=== PATIENT | female | born 1985 | race American Indian/Alaskan Native ===

== ENCOUNTER 2016-10-23 14:58 | Emergency (ER) | payer BC ==
[2016-10-23 15:10] VITALS: BP 133/87
--- NOTE | 2016-10-23 15:36 | Emergency Department Report ---
Chief Complaint: Neuro Symptoms/Deficit Stated Complaint: POSS BRANDT SYMPTOMS Time Seen by Provider: 10/23/16 15:32 - HPI History of Present Illness: 31 y/o female complain of unable to move left arm and left leg x 6 hours ago .pt state symptom has resolved now.denies any headache ,denies any chest pain .pt denies any prior symptoms. - ROS Review of Systems: per HPI - Exam Vital Signs: Vital Signs 10/23/16 15:05 Temperature 98.7 F Pulse Rate 89 Respiratory 16 Rate Blood Pressure 133/87 O2 Sat by Pulse 97 Oximetry Physical Exam: GENERAL: The patient is well-developed and well-nourished. Patient is in NAD. HENT: Normocephalic. Atraumatic. Patient has moist mucous membranes. Throat: No erythema, swelling or exudates. Ears:Tympanic membranes pearly cantu ,intact , and free of exudate and erythema . EYES: Extraocular motions are intact, PERRL NECK: Supple. No meningitic signs are noted. There is no adenopathy noted. CHEST/LUNGS: Clear to auscultation bilaterally. No wheezing, rales or rhonchi noted. There is no respiratory distress noted. HEART/CARDIOVASCULAR: Regular rate and rhythm. Normal S1 S2. No murmurs, rubs , clicks, or gallops. ABDOMEN: Abdomen is soft, nontender.. Bowel sounds normoactive. There is no abdominal distention. Negative rebound tenderness. : Deferred. SKIN: There is no rash. There is no edema. There is no diaphoresis.Normal skin turgor NEURO: The patient is A&Ox3. The patient has no focal neurologic deficits. MUSCULOSKELETAL: There is no tenderness or deformity. There is no limitation range of motion. posture erect.Spine aligned,no deformities. PSYCH: Pt has appropriate mood and affect. MSE screening note: Focused history and physical exam performed. Due to findings the following was ordered: ED Disposition for MSE Condition: Stable
[2016-10-23 16:10] LABS: Basophils % (Auto) 0.6 % (0.0-1.8); Eosinophils % (Auto) 1.7 % (0.0-4.3); Hematocrit 32.9 % (30.3-42.9); Hemoglobin 10.2 gm/dl (10.1-14.3); Mean Corpuscular HGB Conc 31 % (30-34); Mean Corpuscular Volume 79 fl (79-97); Platelet Count 361 K/mm3 (140-440); Red Blood Count 4.18 M/mm3 (3.65-5.03); Red Cell Distribution Width 13.9 % (13.2-15.2)
[2016-10-23 16:11] LABS: Mean Corpuscular Hemoglobin 24 pg (28-32)
[2016-10-23 16:20] LABS: INR 0.9 (0.87-1.13)
[2016-10-23 16:21] LABS: Partial Thromboplastin Time 31.5 Sec. (24.2-36.6)
[2016-10-23 16:34] LABS: Creatine Kinase 88 units/L (30-135); Creatine Kinase MB 1.5 ng/mL (0.0-4.0)
--- NOTE | 2016-10-23 18:02 | Cat Scan Report ---
FINAL REPORT PROCEDURE: CT head without contrast. TECHNIQUE: Computerized tomography of the head was performed without contrast material. HISTORY: Numbness, slurred speech. COMPARISON: No prior studies are available for comparison. FINDINGS: The ventricles are normal in size. The jennings matter and white matter appear normal. There are no mass lesions. There is no intracranial hemorrhage. There are no signs of acute infarction. The calvarium appears intact. The mastoid air cells and visualized paranasal sinuses are well aerated. IMPRESSION: Normal study.
--- NOTE | 2016-10-24 18:52 | ED Elopement Review ---
ED Pt Elopement review - Results review Lab results: Laboratory Tests 10/23/16 10/23/16 10/23/16 15:07 15:50 15:50 WBC 8.0 RBC 4.18 Hgb 10.2 Hct 32.9 MCV 79 MCH 24 L MCHC 31 RDW 13.9 Plt Count 361 Lymph % (Auto) 28.5 [place] % (Auto) 9.3 H Eos % (Auto) 1.7 Baso % (Auto) 0.6 Lymph # 2.3 [place] # 0.7 Eos # 0.1 Baso # 0.1 Seg Neutrophils % 59.9 Seg Neutrophils # 4.8 PT 12.1 L INR 0.90 APTT 31.5 Thrombin Time 15.2 POC Glucose 147 H Total Creatine Kinase CK-MB (CK-2) CK-MB (CK-2) Rel Index Troponin T HCG, Quant 10/23/16 10/23/16 15:50 15:50 WBC RBC Hgb Hct MCV MCH MCHC RDW Plt Count Lymph % (Auto) [place] % (Auto) Eos % (Auto) Baso % (Auto) Lymph # [place] # Eos # Baso # Seg Neutrophils % Seg Neutrophils # PT INR APTT Thrombin Time POC Glucose Total Creatine Kinase 88 CK-MB (CK-2) 1.5 CK-MB (CK-2) Rel Index 1.7 Troponin T < 0.010 HCG, Quant < 2 - Call Back decision Pt Call Back Decision: Call pt to return to ED ANDREZ (TIA versus complex migraine should be further evaluated)
== END 2016-10-23 19:45 | disposition left against medical advice (07) ==
LOC: ED 14:58
DX: R26.2 Difficulty in walking, not elsewhere classified (principal); Z53.21 Procedure and treatment not carried out due to patient leaving prior to being seen by health care provider
CPT/HCPCS: 36415; 70450; 82550; 82553; 82962; 84484; 84702; 85025; 85610; 85670; 85730; 93005; 93010

== ENCOUNTER 2016-10-31 12:18 | Emergency (ER) | payer BC ==
[2016-10-31 12:30] VITALS: BP 126/92
[2016-10-31] MEDS ORDERED: TYLENOL PO ONE (13:50)
--- NOTE | 2016-10-31 16:13 | Emergency Department Report ---
HPI - General Chief Complaint: Recheck/Abnormal Lab/Rx Time Seen by Provider: 10/31/16 12:54 - HPI HPI: The patient is a 31-year-old female who presents for evaluation of headache. The patient reports on and off headache for the past 6 days, currently mild to moderate in severity, frontal in location, aching quality, not the worse headache of her life. She states that she experienced an episode of numbness and tingling in her left arm and leg 1 week ago, which spontaneously resolved after hours. She has not experienced any similar numbness, tingling, or other paresthesia within the past 6 days. The patient also denies fever, head injury, neck pain, neck stiffness, vision or hearing changes, smell or taste changes, , facial drooping, slurred speech, weakness in the arms or legs, seizure-like activity, urine or bowel incontinence or retention, or other focal neurological deficit. ED Past Medical Hx - Past Medical History Hx Diabetes: Yes Hx Seizures: Yes (X 1 (JULY)) Hx HIV: No Additional medical history: OVARIAN CYST - Surgical History Additional Surgical History: OVARIAN CYST REMOVED - Social History Smoking Status: Never Smoker Substance Use Type: None - Medications Home Medications: Home Medications Medication Instructions Recorded Confirmed Last Taken Type Insulin NPH, Human [NovoLIN N] 20 unit SQ QPM 10/23/16 10/23/16 10/22/16 20:45 History Insulin NPH, Human [NovoLIN N] 40 unit SQ QAM 10/23/16 10/23/16 10/23/16 10:15 History Insulin Regular, Human [HumuLIN R] 0 unit SQ ACHS 10/23/16 10/23/16 10/22/16 20: 45 History Acetaminophen/Codeine [Tylenol #3] 1 tab PO Q6H PRN #12 tab 10/31/16 Unknown Rx ED Review of Systems ROS: Stated complaint: WAS CALLED BACK Other details as noted in HPI Constitutional: denies: fever ENT: denies: throat or neck pain Respiratory: denies: cough, shortness of breath Cardiovascular: denies: chest pain Endocrine: denies unexplained weight loss or gain Gastrointestinal: denies: abdominal pain, nausea Genitourinary: denies: dysuria Musculoskeletal: denies: leg swelling Skin: denies: rash Neurological: reports headache Hematological/Lymphatic: denies: easy bleeding or easy bruising Psych: denies sadness or hopelessness Physical Exam - Physical Exam Vital Signs: Vital Signs 10/31/16 10/31/16 12:23 13:02 Temperature 98.1 F Pulse Rate 76 Respiratory 18 16 Rate Blood Pressure 126/92 O2 Sat by Pulse 100 Oximetry Physical Exam: General: well-nourished, well-developed, no acute distress Head: Normocephalic, atraumatic Eyes: normal sclera, PERRL, EOM intact ENT: Mucous membranes are pink and moist Neck: trachea midline, neck supple, No neck stiffness, no cervical adenopathy Respiratory: Breath sounds equal bilaterally, no wheezing, rales, or rhonchi Cardio: S1 and S2 present, no murmurs, rubs, gallops, capillary refill is brisk Abdomen: Normoactive bowel sounds, soft abdomen, no rigidity, no guarding or rebound tenderness Musc: No pitting edema Skin: No rash Neuro: alert oriented x4, normal cognition, speech normal, no facial drooping, no uvula or tongue deviation on protrusion, no deficit with rotation of neck or shoulder shrug, CN2-12 grossly intact, no obvious gross motor deficit in the upper or lower extremities with flexion or extension at the shoulder, elbow, wrist, hip, knee, or ankle bilaterally, no obvious gross sensation deficit to crude touch or 2 pt discrimination, 2+ symmetric reflexes on DTR testing, no dysmetria, dysdiadochokinesia, no coordination deficit with [id number] or [id number] testing, romberg negative, patient able to to ambulate without abnormal gait Psych: Normal affect ED Course Vital Signs 10/31/16 10/31/16 12:23 13:02 Temperature 98.1 F Pulse Rate 76 Respiratory 18 16 Rate Blood Pressure 126/92 O2 Sat by Pulse 100 Oximetry ED Medical Decision Making - Medical Decision Making The patient was seen and examined by myself. The patient is placed on a cardiac cath tech and continuous pulse ox. On initial evaluation, the patient was found to be in no distress. As there are no neuro deficits or other findings on examination concerning for acute intracranial disease process, and as the patient states that symptoms are consistent with previous headaches, a CAT scan of the head will not be obtained at this time. The patient given a tablet of Tylenol for pain. Medical records are reviewed and revealed that the patient received a CAT scan 1 week ago which was negative for any acute abnormality. The patient was reevaluated and reported that her headache was markedly improved. The patient is stable for discharge with outpatient follow-up. The patient is given follow-up and return instructions. The patient expressed understanding and agreed with the plan. The patient is discharged in stable condition. Critical care attestation.: If time is entered above; I have spent that time in minutes in the direct care of this critically ill patient, excluding procedure time. ED Disposition Clinical Impression: Acute nonintractable headache Qualifiers: Headache type: tension-type Qualified Code(s): G44.209 - Tension-type headache , unspecified, not intractable Disposition: DISCHARGED TO HOME OR SELFCARE Is pt being admited?: No Does the pt Need Aspirin: No Condition: Stable Instructions: Migraine Headache (ED) Referrals: [facility] [Outside] - 3-5 Days ARNULFO ERVIN MD [Staff Physician] - 3-5 Days Time of Disposition: 13:51
== END 2016-10-31 14:15 | disposition home or self-care (01) ==
LOC: ED 12:18
DX: G44.209 Tension-type headache, unspecified, not intractable (principal); E11.9 Type 2 diabetes mellitus without complications
CPT/HCPCS: 99283

== ENCOUNTER 2018-05-11 19:14 | Emergency (ER) | payer BC ==
[2018-05-11 20:11] VITALS: BP 135/94
[2018-05-11] MEDS ORDERED: BOOSTRIX IM ONE ×2 (23:03→23:05)
--- NOTE | 2018-05-11 23:20 | Emergency Department Report ---
Chief Complaint: Laceration/Recheck/Suture Stated Complaint: CUT ON RT LEG Time Seen by Provider: 05/11/18 23:15 - HPI History of Present Illness: 32-year-old -[place] female comes in 24 hours later for a right calf laceration on the piece of metal. Patient reports that she did not think that it was gone and need sutures but someone told her she should have that checked out. Patient denies any fever chills no nausea no vomiting she denies any active bleeding from the wound she reports that it does have pain she has been cleaning it with soap and water and place and Band-Aids on it. Patient has no other concerns besides needing a booster shot of her tetanus. - ROS Review of Systems: Left lower extremity calf laceration 1.2 cm irregular shaped - Exam Vital Signs: Vital Signs 05/11/18 20:06 Temperature 98.6 F Pulse Rate 91 H Respiratory 16 Rate Blood Pressure 135/94 O2 Sat by Pulse 96 Oximetry Physical Exam: Left lower extremity laceration on erythematous non-edematous tenderness when taking off Band-Aid. No active bleeding. MSE screening note: Focused history and physical exam performed. Due to findings the following was ordered: Patient will be given a boost X boostix tetanus shot. Stress the patient since the wound has been open longer than 24 hours. That I will not be able to suture the wound up. I encouraged patient to keep it clean and dry little Neosporin Band-Aid. Return back to the emergency room if there is any signs of infection such as swelling purulent discharge extreme pain. Patient verbalized understanding ED Disposition for MSE Condition: Stable Referrals: PRIMARY CARE, [Primary Care Provider] - 3-5 Days
== END 2018-05-11 23:30 | disposition home or self-care (01) ==
LOC: ED 19:14
DX: S81.811A Laceration without foreign body, right lower leg, initial encounter (principal); W45.8XXA Other foreign body or object entering through skin, initial encounter; Y93.89 Activity, other specified; Y92.89 Other specified places as the place of occurrence of the external cause; Y99.8 Other external cause status
CPT/HCPCS: 90471; 90715; 99281